=== PATIENT | male | born 1980 | race Caucasian/White ===

== ENCOUNTER 2016-12-16 21:10 | Emergency (ER) | payer SELFPAY ==
[2016-12-16] MEDS ORDERED: Sodium Chloride 0.9% 1,000 ML IV ONE (22:30)
[2016-12-16 22:49] LABS: BASO % 0.3 % (0.0-2.0); EOS % 0.1 % (0.0-4.0); LYMPH # 1.3 K/uL (1.0-4.3); LYMPH % 13.3 % (20.0-40.0); MEAN CELL VOLUME 88.6 fL (80.0-94.0); MEAN CORPUSCULAR HEMOGLOBIN 29.3 pg (27.0-31.0); MEAN CORPUSCULAR HGB CONC 33.1 g/dL (33.0-37.0); MEAN PLATELET VOLUME 9.6 fL (7.2-11.7); MONO # 0.5 K/uL (0.0-0.8); MONO % 4.9 % (0.0-10.0); NRBC % 0.1 % (0.0-2.0); RED CELL DISTRIBUTION WIDTH 13.5 % (11.5-14.5); WHITE BLOOD COUNT 9.8 K/uL (4.8-10.8)
[2016-12-16 22:57] LABS: CHLORIDE 93 mmol/L (98-107); POTASSIUM 3.6 mmol/L (3.6-5.2); SODIUM 134 mmol/L (132-148)
[2016-12-16 22:59] LABS: GFR AFRICAN-AMERICAN > 60
[2016-12-16 23:00] LABS: ALB/GLOB RATIO 1.4 (1.0-2.1); ALKALINE PHOSPHATASE 87 U/L (38-126); ALT/SGPT 49 U/L (21-72); AST/SGOT 28 U/L (17-59); BILIRUBIN,TOTAL 0.6 mg/dL (0.2-1.3); BLOOD UREA NITROGEN 14 mg/dL (9-20); CARBON DIOXIDE 30 mmol/L (22-30); GLUCOSE,RANDOM 142 mg/dL (75-110); TOTAL PROTEIN 7.9 g/dL (6.3-8.3)
[2016-12-16] MEDS ORDERED: Sodium Chloride 0.9% 1,000 ML ONE (23:33)
[2016-12-17] MEDS ORDERED: Oxycodone/Acetaminophen 5/325 mg Tab PO STA (00:17)
[2016-12-17] MEDS ORDERED: Oxycodone/Acetaminophen 5/325 mg Tab ONE ×2 (00:22→00:27)
[2016-12-17 00:28] VITALS: BP 130/78; PULSE 50; RESP 16; TEMP 97.7; O2SAT 99
--- NOTE | 2016-12-17 00:49 | C.PDOC ---
History Of Present Illness <Abdifatah Mcfarland DO - Last Filed: 12/17/16 00:57> <Carmel Hernandez - Last Filed: 12/17/16 06:03> Patient is a 36 year old male with a PMHx of gallstones who presents to the ER with a complaint of RUQ/epigastric pain that began 2 days ago. Patient was diagnosed over 1 month ago, however, patient did not follow up after ER visit. Patient is able to tolerate PO, denies fever, chest pain, SOB, dysuria, and hematuria. (Abdifatah Mcfarland DO) History Per: Patient History/Exam Limitations: no limitations Onset/Duration Of Symptoms: Hrs Current Symptoms Are (Timing): Still Present Context: Other (Not known) Location Of Pain/Discomfort: RUQ, Epigastric Radiation Of Pain To:: None Associated Symptoms: denies: Fever, Chest Pain, Urinary Symptoms, Other (SOB) Exacerbating Factors: None Alleviating Factors: None Recent travel outside of the [place]: No <Abdifatah Mcfarland DO - Last Filed: 12/17/16 00:57> <Carmel Hernandez - Last Filed: 12/17/16 06:03> Chief Complaint (Nursing): Abdominal Pain Past Medical History Reviewed: Historical Data, Nursing Documentation, Vital Signs - Medical History PMH: No Chronic Diseases Surgical History: No Surg Hx <Abdifatah Mcfarland DO - Last Filed: 12/17/16 00:57> Family History: States: Unknown Family Hx - Social History Hx Alcohol Use: Yes Hx Substance Use: No - Immunization History Hx Tetanus Toxoid Vaccination: No Hx Influenza Vaccination: No Hx Pneumococcal Vaccination: No <Carmel Hernandez - Last Filed: 12/17/16 06:03> Vital Signs: Last Vital Signs Temp 97.7 F 12/17/16 00:27 Pulse 50 L 12/17/16 00:27 Resp 16 12/17/16 00:27 BP 130/78 12/17/16 00:27 Pulse Ox 99 12/17/16 06:02 Review Of Systems Constitutional: Negative for: Fever Cardiovascular: Negative for: Chest Pain Respiratory: Negative for: Shortness of Breath Gastrointestinal: Positive for: Abdominal Pain (RUQ/Epigastric) Genitourinary: Negative for: Dysuria, Hematuria <Abdifatah Mcfarland DO - Last Filed: 12/17/16 00:57> Physical Exam - Physical Exam Appears: Well, Non-toxic Skin: Normal Color, Warm, Dry Head: Atraumatic, Normacephalic Oral Mucosa: Moist Chest: Symmetrical, No Tenderness Cardiovascular: Rhythm Regular, No Murmur Respiratory: Normal Breath Sounds, No Rales, No Rhonchi, No Wheezing Gastrointestinal/Abdominal: Bowel Sounds (Good), Soft, Tenderness (Mild, RUQ), Other (Negative Calderon's sign) Back: No CVA Tenderness Neurological/Psych: Oriented x3, Normal Speech, Normal Cognition <Abdifatah Mcfarland DO - Last Filed: 12/17/16 00:57> ED Course And Treatment - Laboratory Results Result Diagrams: 12/16/16 22:44 12/16/16 22:44 Pulse Ox Interpretation: Normal Progress Note: Pepcid IVP, zofran IVP, percocet PO, and IV fluids. Abd US ordered. <Abdifatah Mcfarland DO - Last Filed: 12/17/16 00:57> - Laboratory Results Result Diagrams: 12/16/16 22:44 12/16/16 22:44 O2 Sat by Pulse Oximetry: 99 <Carmel Hernandez - Last Filed: 12/17/16 06:03> Disposition - Disposition Disposition Time: 00:20 <Abdifatah Mcfarland DO - Last Filed: 12/17/16 00:57> <Carmel Hernandez - Last Filed: 12/17/16 06:03> - Disposition Referrals: [facility] [Outside] [facility] [Outside] Disposition: HOME/ ROUTINE Condition: FAIR Additional Instructions: Thank you for letting us take care of you today. Your provider was Dr. Mcfarland. You were treated for gallstones. The emergency medical care you received today was directed at your acute symptoms. If you were prescribed any medication, please fill it and take as directed. It may take several days for your symptoms to resolve. Return to the Emergency Department if your symptoms worsen, do not improve, or if you have any other problems. Please contact your doctor or call one of the physicians/clinics you have been referred to that are listed on the Patient Visit Information form that is included in your discharge packet. Bring any paperwork you were given at discharge with you along with any medications you are taking to your follow up visit. Our treatment cannot replace ongoing medical care by a primary care provider (PCP) outside of the emergency department. Thank you for allowing the [facility] team to be part of your care today. FOLLOW UP IN THE CLINIC ON MONDAY TO BE REFERRED TO A SURGEON FOR YOUR GALLSTONES. Prescriptions: Ondansetron ODT [Zofran ODT] 1 odt PO TID #12 odt oxyCODONE [oxyCODONE Immediate Release Tab] 5 mg PO Q6 PRN #20 tab PRN Reason: Pain, Severe (8-10) Instructions: Cholecystitis (ED) - Clinical Impression Clinical Impression: Abdominal colic - Scribe Statement The provider has reviewed the documentation as recorded by the Scribe <Abdifatah Mcfarland DO - Last Filed: 12/17/16 00:57> <Carmel Hernandez - Last Filed: 12/17/16 06:03> - Scribe Statement Fredrick Baldwin All medical record entries made by the Scribe were at my direction and personally dictated by me. I have reviewed the chart and agree that the record accurately reflects my personal performance of the history, physical exam, medical decision making, and the department course for this patient. I have also personally directed, reviewed, and agree with the discharge instructions and disposition. (Abdifatah Mcfarland DO)
--- NOTE | 2016-12-17 10:18 | US ---
HISTORY: abd pain COMPARISON: Comparison is made to the previous CT of the abdomen and pelvis dated 05/24/2016 TECHNIQUE: Sonographic evaluation of the abdomen. FINDINGS: LIVER: Measures 14.5 cm. Heterogeneous mildly increased echogenicity of the liver parenchyma. No mass. No intrahepatic bile duct dilatation. GALLBLADDER: Gallstones are noted without evidence of acute cholecystitis. The gallbladder wall thickness is 1.9 millimeter. COMMON BILE DUCT: Measures 4.2 mm. No stones. No dilatation. PANCREAS: Unremarkable as visualized. No mass. No ductal dilatation. RIGHT KIDNEY: Measures 10.5 x 5.4 x 5.5cm. Normal echogenicity. No calculus, mass, or hydronephrosis. LEFT KIDNEY: Measures 10.3 x 5.3 x 5.3cm. Normal echogenicity. No calculus, mass, or hydronephrosis. SPLEEN: Normal in size and contour. No mass. AORTA: No aneurysmal dilatation. IVC: Unremarkable. OTHER FINDINGS: None. IMPRESSION: Gallstones without definite ultrasound evidence of acute cholecystitis. Mildly echogenic liver likely due to mild steatosis. Preliminary report was submitted by [facility].
== END 2016-12-17 00:55 | disposition home or self-care (01) ==
LOC: C.ER 21:10
DX: K80.20 Calculus of gallbladder without cholecystitis without obstruction (principal); R10.84 Generalized abdominal pain
CPT/HCPCS: 76700; 80053; 83690; 85025; 96361; 96374; 96375; 99284; J2405; J7040